=== PATIENT | male | born 1945 | race Caucasian/White ===

== ENCOUNTER 2018-11-30 21:49 | Emergency (ER) | payer OTHER, MEDICARE | END 2018-12-01 00:39 | disposition home or self-care (01) | LOC: FER 21:49 ==

== ENCOUNTER 2023-01-25 19:37 | Emergency (ER) | payer OTHER, MEDICARE ==
[2023-01-25] MEDS ORDERED: morphine SULFATE 4 MG/ML VIAL ONE ×2 (19:42→21:12)
[2023-01-25] MEDS ORDERED: morphine CARPU-JECT 2 MG/1 ML DISP.SYRIN IM ONE ×2 (19:42→21:07)
[2023-01-25] MEDS ORDERED: SIMETHICONE 80 MG TAB.CHEW (FP) PO ONE (19:48)
[2023-01-25] MEDS ORDERED: LACTULOSE 20 GM/30 ML UDC (FOR ORAL USE ONLY) PO ONE (19:49)
[2023-01-25 20:07] VITALS: BP 162/84; PULSE 91; RESP 20; BMI 22.1
[2023-01-25 20:52] LABS: BLOOD UREA NITROGEN 23.8 mg/dl (7-18); CREATININE 1.9 mg/dl (0.6-1.3); POTASSIUM 4.5 mmol/L (3.5-5.1)
[2023-01-25] MEDS ORDERED: KETOROLAC TROMETHAMINE 60 MG/2 ML VIAL IM ONE (21:18)
[2023-01-25] MEDS ORDERED: KETOROLAC TROMETHAMINE 30 MG/1 ML VIAL ONE (21:24)
== END 2023-01-25 21:48 | disposition home or self-care (01) ==
LOC: FER 19:37 → SUPCPDRO 19:37 → FER 21:48
PROC: 3E0233Z Introduction of Anti-inflammatory into Muscle, Percutaneous Approach (ICD-10-PCS; principal; 2023-01-25)
PROC: 3E023GC Introduction of Other Therapeutic Substance into Muscle, Percutaneous Approach (ICD-10-PCS; 2023-01-25)
PROC: 3E023GC Introduction of Other Therapeutic Substance into Muscle, Percutaneous Approach (ICD-10-PCS; 2023-01-25)
DX: R10.9 Unspecified abdominal pain (principal)
CPT/HCPCS: 36415; 80048; 99284-25

== ENCOUNTER 2024-03-17 14:44 | Emergency (ER) | payer OTHER, MEDICARE ==
[2024-03-17 15:19] VITALS: BP 145/99; PULSE 75; RESP 19; TEMP 98.6; BMI 20.7
[2024-03-17] MEDS: METHYLNALTREXONE BROMIDE 8 MG/0.4 ML SYRINGE SQ ONE (16:10)
[2024-03-17] MEDS: MINERAL OIL ENEMA 133 ML ENEMA RC ONE (16:15)
[2024-03-17 17:28] LABS: HEMATOCRIT 47.7 % (35.4-49); MCH 29.6 pg (25.7-33.7); MCHC 31.4 g/dl (32.0-35.9); MEAN CELL VOLUME 94.2 fl (80-96); MEAN PLT VOLUME 7.4 fl (7.5-11.1); PLATELET COUNT 209.4 10^3/uL (134-434); RBC 5.06 10^6/uL (4.00-5.60); RDW 15.6 % (11.9-15.9); WHITE BLOOD COUNT 7.1 10^3/uL (4.0-10.8)
[2024-03-17 17:34] LABS: PLATELET ESTIMATE ADEQUATE
[2024-03-17 17:43] LABS: ALBUMIN 4.5 g/dl (3.4-5.0); BILIRUBIN,TOTAL 0.7 mg/dl (0.2-1); CALCIUM 9.4 mg/dl (8.5-10.1); CREATININE 1.6 mg/dl (0.6-1.3); POTASSIUM 4.7 mmol/L (3.5-5.1); TOT PROT 7.1 g/dl (6.4-8.2)
[2024-03-17] MEDS: SODIUM CHLORIDE 0.9% 1000 ML INFUS.BAG IV ONE (18:26)
== END 2024-03-17 22:18 | disposition home or self-care (01) ==
LOC: SUPCPDRO 14:44 → FER 14:44
PROC: 3E013GC Introduction of Other Therapeutic Substance into Subcutaneous Tissue, Percutaneous Approach (ICD-10-PCS; principal; 2024-03-17)
DX: K52.9 Noninfective gastroenteritis and colitis, unspecified (principal); K59.00 Constipation, unspecified
CPT/HCPCS: 36415; 74176-TC; 80053; 81003; 81015; 85027; 87086; 87186; 99284-25